=== PATIENT | male | born 1955 | race Caucasian/White ===

== ENCOUNTER 2017-04-27 18:40 | Observation (INO) | payer MEDICAID ==
[2017-04-27 18:45] VITALS: BMI 32.5
[2017-04-27] MEDS ORDERED: Sodium Chloride 0.9% 500 ML IV STA (19:01)
[2017-04-27] MEDS ORDERED: Sodium Chloride 0.9% 2,000 ML IV STA (19:03)
[2017-04-27 19:32] LABS: BASO # 0.03 K/mm3 (0.0-2.0); BASO % 0.5 % (0.0-3.0); EOS % 0.6 % (1.5-5.0); HEMOGLOBIN 14.7 gm/dL (14.0-18.0); LYMPH # 1.7 (1.2-3.4); MEAN CELL VOLUME 90.1 fL (80.0-105.0); MEAN CORPUSCULAR HEMOGLOBIN 30.9 pg (25.0-35.0); MEAN CORPUSCULAR HGB CONC 34.3 g/dl (31.0-37.0); MONO # 0.6 (0.1-0.6); MONO % 8.9 % (1.0-6.0); PLATELET COUNT 229 10^3/uL (120.0-450.0); RBC 4.76 10^6/uL (3.5-6.1); RED CELL DISTRIBUTION WIDTH 13.3 % (11.5-14.5); WHITE BLOOD COUNT 6.6 10^3/ul (4.5-11.0)
[2017-04-27 19:35] LABS: ALB/GLOB RATIO 1.2 (1.1-1.8); ALBUMIN 3.9 g/dL (3.0-4.8); ALT/SGPT 36 U/L (7-56); AST/SGOT 23 U/L (15-59); BLOOD UREA NITROGEN 12 mg/dL (7-21); GFR AFRICAN-AMERICAN > 60; GFR NON-AFRICAN AMERICAN > 60
[2017-04-27 19:39] LABS: INR 1.1 (0.93-1.08); PARTIAL THROMBOPLASTIN TIME 23.1 Seconds (23.7-30.8); PROTHROMBIN TIME 11.9 Seconds (9.9-11.8)
[2017-04-27 19:52] LABS: T4 7.6 ug/dL (5.5-11.0)
[2017-04-27 19:56] LABS: TROPONIN I < 0.01 ng/mL
[2017-04-27] MEDS ORDERED: Insulin Regular 1 UNITS/0.01 ML ML IV STA ×2 (20:44→23:08)
--- NOTE | 2017-04-27 20:56 | ED PDOC ---
Arrival/HPI - General Chief Complaint: Chest Pain Time Seen by Provider: 04/27/17 19:01 Historian: Patient - History of Present Illness Narrative History of Present Illness (Text): 04/27/17 20:57 A 61 year old male presents to the emergency department complaining of one day duration of chest pain and pressure, polyuria and polydipsia and increase thirst. Patient denies any other complaints at this time. PMD: Dr. Hightower Time/Duration: Other (one day) Symptom Onset: Sudden Symptom Course: Unchanged Activities at Onset: Rest Context: Home Past Medical History - Provider Review Nursing Documentation Reviewed: Yes - Infectious Disease Hx of Infectious Diseases: None - Tetanus Immunization Tetanus Immunization: Unknown - Cardiac Hx Hypertension: Yes - Pulmonary Hx Respiratory Disorders: Yes Hx Chronic Obstructive Pulmonary Disease (COPD): Yes - Neurological Hx Neurological Disorder: No - HEENT Hx HEENT Disorder: No - Renal Hx Renal Disorder: No - Endocrine/Metabolic Hx Endocrine Disorders: No - Hematological/Oncological Hx Blood Disorders: No - Integumentary Hx Dermatological Disorder: No - Musculoskeletal/Rheumatological Hx Musculoskeletal Disorders: No - Gastrointestinal Hx Gastrointestinal Disorders: No - Genitourinary/Gynecological Hx Genitourinary Disorders: No - Psychiatric Hx Anxiety: Yes Hx Substance Use: No - Surgical History Hx Coronary Stent: Yes Other/Comment: L shoulder - Anesthesia Hx Anesthesia: Yes Hx Anesthesia Reactions: No Hx Malignant Hyperthermia: No - Suicidal Assessment Feels Threatened In Home Enviroment: No Family/Social History - Physician Review Nursing Documentation Reviewed: Yes Family/Social History: No Known Family HX Smoking Status: Former Smoker Hx Alcohol Use: No Hx Substance Use: No Hx Substance Use Treatment: No Allergies/Home Meds Allergies/Adverse Reactions: Allergies No Known Allergies Allergy (Verified 07/03/12 13:54) Home Medications: Home Meds Medication Instructions Recorded Confirmed Aspirin [Ecotrin] 325 mg PO DAILY 07/05/12 04/27/17 Gemfibrozil 600 mg PO Q12 07/05/12 04/27/17 Digoxin [Lanoxin] 0.25 mg PO DAILY 04/27/17 04/27/17 Ergocalciferol (Vitamin D2) 50,000 iu PO QD7 04/27/17 04/27/17 [Vitamin D] Fluticasone/Salmeterol [Advair 1 puff INH DAILY 04/27/17 04/27/17 250-50 Diskus] Hydrochlorothiazide [Microzide] 12.5 mg PO DAILY 04/27/17 04/27/17 Ipratropium [Atrovent HFA] 1 puff INH BID PRN 04/27/17 04/27/17 Levothyroxine [Synthroid] 75 mcg PO DAILY 04/27/17 04/27/17 Metoprolol Tartrate [Lopressor] 25 mg PO BID 04/27/17 04/27/17 Sertraline [Zoloft] 50 mg PO DAILY 04/27/17 04/27/17 Review of Systems - Physician Review All systems were reviewed & negative as marked: Yes Physical Exam - Physical Exam Narrative Physical Exam (Text): 04/27/17 20:55- Review of Systems Constitutional: Normal. absent: Fatigue, Weight Change, Fevers Eyes: Normal ENT: Normal Respiratory: Normal absent: SOB, Cough, Sputum Cardiovascular: Chest pain and pressure absent: Palpitations, Syncope Gastrointestinal: Normal absent: Abdominal pain, Diarrhea, Nausea, Vomiting Genitourinary: polyuria, polydipsia, increase thirst absent: Dysuria, Frequency , Hematuria Musculoskeletal: Normal. absent: Arthralgias, Back Pain, Neck Pain Skin: Normal Neurological: Normal absent: Focal Weakness Endocrine: polyuria, polydipsia Hemo/Lymphatic: Normal Psychiatric: Normal - Physical exam Patient appears age appropriate, speaking full sentences without difficulty - Systems Exam Head: Present: Atraumatic, Normocephalic Pupils: Present: PERRL Extraocular Muscles: Present: EOMI Conjunctiva: Present: Normal Mouth: Present: Moist Mucous Membranes Neck: Present: Normal Range of Motion. No: MIDLINE TENDERNESS, Paraspinal Tenderness Respiratory/Chest: Present: Clear to Auscultation, Good Air Exchange. No: Respiratory Distress, Accessory Muscle Use, Tachypnic Cardiovascular: Present: tachycardic, Peripheral Pulses Present. No: Murmurs Abdomen: Present: Normal Bowel Sounds, No: Tenderness, Peritoneal Signs, Rebound, Guarding, Distention Back: Present: Normal Inspection. No: Midline Tenderness, Paraspinal Tenderness Upper Extremity: Present: Normal Inspection. No: Cyanosis, Edema Lower Extremity: Present: Normal Inspection. No: Edema Neurological: Present: GCS=15, Speech Normal, cranial nerves II through XII fully intact with no cerebellar abnormality, neuro-sensory fully intact. No focal neurological deficits. Skin: Present: Warm, Dry, Normal Color. No: Rashes Lymphatic: Present: OX3, NI, NC Psychiatric: Present: Alert, Oriented x 3, Normal Insight, Normal Concentration Vital Signs Reviewed: Yes Vital Signs Temp Pulse Resp BP Pulse Ox 04/27/17 18:40 99.1 F 109 H 16 114/98 H 99 Temperature: Afebrile Blood Pressure: Hypertensive Pulse: Tachycardic Respiratory Rate: Normal Appearance: Positive for: Well-Appearing, Non-Toxic, Comfortable Pain Distress: None Mental Status: Positive for: Alert and Oriented X 3 Finger Stick Blood Glucose: 500 Medical Decision Making ED Course and Treatment: 04/27/17 20:52 Impression: A 61 year old male with chest pain and pressure, polyuria and polydipsia. No acute findings on physical exam. Differential Diagnosis included but are not limited to: ACS vs. DKA vs. hyperglycemia Plan: -- EKG -- chest xray -- labs -- Urinalysis -- Aspirin, Nitroglycerin, IV fluids -- Reassess and disposition Prior Visits: Notes and results from previous visits were reviewed. Patient last reported to the emergency department on 12/04/14 for evaluation of diffuse abdominal pain, nausea, vomiting and diarrhea. Progress Notes: EKG: Ordered, reviewed, and independently interpreted the EKG. Rate : 98 BPM Rhythm : NSR Interpretation : No ST segment elevations, PVCs, poor R wave progression 04/27/17 21:[address] Shannon, who accepted admission for hyperglycemia to hospital service. pt aware of and agrees with plan Dr. Hightower, [place], on vacation, whose patients to be admitted to hosp service. Chest xray interpreted by ED physician shows no pneumothorax, no cardiomegaly, no infiltrates - Lab Interpretations Lab Results: 04/27/17 18:50 04/27/17 18:50 Lab Results 04/27/17 20:52: POC Glucose (mg/dL) > 500 H* 04/27/17 20:21: Digoxin 0.6 L 04/27/17 19:03: POC Glucose (mg/dL) > 500 H* 04/27/17 18:50: Thyroxine (T4) 7.6, TSH 3rd Generation 3.76 04/27/17 18:50: Sodium 121 L, Potassium 3.9, Chloride 83 L, Carbon Dioxide 22, Anion Gap 20, BUN 12, Creatinine 0.9, Est GFR ( Amer) > 60, Est GFR (Non- Af Amer) > 60, Random Glucose 758 H* D, Calcium 9.0, Total Bilirubin 1.7 H, AST 23, ALT 36, Alkaline Phosphatase 142 H, Lactate Dehydrogenase 432, Total Creatine Kinase 66, Troponin I < 0.01 D, Total Protein 7.1, Albumin 3.9, Globulin 3.2, Albumin/Globulin Ratio 1.2 04/27/17 18:50: PT 11.9 H, INR 1.10 H, APTT 23.1 L 04/27/17 18:50: WBC 6.6, RBC 4.76, Hgb 14.7, Hct 42.9, MCV 90.1, MCH 30.9, MCHC 34.3, RDW 13.3, Plt Count 229, Gran % 65.0, Lymph % (Auto) 25.0, [place] % (Auto) 8.9 H, Eos % (Auto) 0.6 L, Baso % (Auto) 0.5, Gran # 4.30, Lymph # 1.7, [place] # 0.6, Eos # 0.0, Baso # 0.03 I have reviewed the lab results: Yes - RAD Interpretation Radiology Orders: 04/27/17 19:01 CHEST PORTABLE [RAD] Stat - EKG Interpretation Interpreted by ED Physician: Yes Type: 12 lead EKG - Medication Orders Current Medication Orders: Discontinued Medications Aspirin (Aspirin Chewable) 324 mg PO STAT STA Stop: 04/27/17 19:02 Last Admin: 04/27/17 19:15 Dose: 324 mg Sodium Chloride (Sodium Chloride 0.9%) 500 mls @ 1,000 mls/hr IV .Q30M STA Stop: 04/27/17 19:30 Last Admin: 04/27/17 19:15 Dose: 1,000 mls/hr Sodium Chloride (Sodium Chloride 0.9%) 2,000 mls @ 1,000 mls/hr IV .Q2H STA Stop: 04/27/17 21:02 Last Admin: 04/27/17 20:36 Dose: 1,000 mls/hr Insulin Human Regular (Humulin R) 10 units IV STAT STA Stop: 04/27/17 20:45 Last Admin: 04/27/17 20:58 Dose: 10 units Nitroglycerin (Nitrostat Sl Tab) 0.3 mg SL STAT STA Stop: 04/27/17 19:02 Last Admin: 04/27/17 19:15 Dose: 0.3 mg - Scribe Statement The provider has reviewed the documentation as recorded by the Lobito Edouard Provider Scribe Attestation: All medical record entries made by the Vidaibe were at my direction and personally dictated by me. I have reviewed the chart and agree that the record accurately reflects my personal performance of the history, physical exam, medical decision making, and the department course for this patient. I have also personally directed, reviewed, and agree with the discharge instructions and disposition. Disposition/Present on Arrival - Present on Arrival Any Indicators Present on Arrival: No History of DVT/PE: No History of Uncontrolled Diabetes: No Urinary Catheter: No History of Decub. Ulcer: No History Surgical Site Infection Following: None - Disposition Have Diagnosis and Disposition been Completed?: Yes Diagnosis: Chest pain, Hyperglycemia Disposition: HOSPITALIZED Disposition Time: 21:09 Patient Plan: Admission Condition: FAIR Discharge Instructions (ExitCare): Chest Pain (ED) Referrals: Anjum Hightower MD [Primary Care Provider] - Follow up with primary
[2017-04-27] MEDS ORDERED: Sodium Chloride 0.9% 1,000 ML IV SCH (22:45)
--- NOTE | 2017-04-27 22:48 | CP.PCM.HP ---
<DANIELLE PRATHERON - Last Filed: 04/28/17 05:14> History of Present Illness - History of Present Illness History of Present Illness: Mr. Oden is a 61 year old male with a past medical history of CAD (Left heart catheterization and [facility] to diagonal and PDA s/p STEMI), Chronic systolic HF, hypothyroidism, htn, and depression who presented to the ED today with complaints of chest pain, abdominal pain, polyuria and polydipsia. Patient denies any radiation of the chest pain, denies provoking and alleviating factors as well. Patient states that he hasn't eaten and is without an appetite. He admits to taking an herbal supplement for his blood sugars, but cannot remember the name at the moment. Present on Admission - Present on Admission Any Indicators Present on Admission: No History of DVT/PE: No History of Uncontrolled Diabetes: Yes Urinary Catheter: No Decubitus Ulcer Present: No Review of Systems - Review of Systems Systems not reviewed;Unavailable: Acuity of Condition, Unstable Vital Signs, Respiratory Distress, Dementia, Altered Mental Status, Intoxicated, Uncooperative, Psychotic, Intubated, Language Barrier, Other All systems: reviewed and no additional remarkable complaints except (abdominal pain, chest pain, polyuria, polydipsia) Past Patient History - Infectious Disease Hx of Infectious Diseases: None - Tetanus Immunizations Tetanus Immunization: Unknown - Past Social History Smoking Status: Former Smoker (3-4 packs a day until about 2 years ago as per patient) Chewing Tobacco Use: No Cigar Use: No Alcohol: Other (heavy drinker until two years ago as per patient) Drugs: Denies - CARDIAC Hx Cardiac Disorders: Yes (CAD ) Hx Angina: Yes Hx Atrial Fibrillation: No Hx Cardia Arrhythmia: No Hx Circulatory Problems: No Hx Congestive Heart Failure: Yes Hx Heart Attack: Yes Hx Heart Murmur: No Hx Heart Transplant: No Hx Hypercholesterolemia: Yes Hx Hypertension: Yes Hx Hypotension: No Hx Internal Defibrillator: No Hx Mitral Valve Prolapse: No Hx Pacemaker: No Hx Peripheral Edema: No Hx Peripheral Vascular Disease: No - PULMONARY Hx Respiratory Disorders: Yes Hx Asthma: No Hx Bronchitis: No Hx Chronic Obstructive Pulmonary Disease (COPD): Yes Hx Emphysema: No Hx Lung Cancer: No Hx Pneumonia: No Hx Pulmonary Edema: No Hx Pulmonary Embolism: No Hx Respiratory Aspiration: No Hx Respiratory Tract Infection: No Hx Sleep Apnea: No Hx Tuberculosis: No - NEUROLOGICAL Hx Neurological Disorder: No Hx Alzheimer's Disease: No HX Cerebrovascular Accident: No Hx Dementia: No Hx Dizziness: No Hx Meningitis: No Hx Migraine: No Hx Multiple Sclerosis: No Hx Paralysis: No Hx Parkinson's Disease: No Hx Seizures: No Hx Syncope: No Hx Transient Ischemic Attacks (TIA): No Hx Vertigo: No - HEENT Hx HEENT Problems: No Hx Blind: No Hx Cataracts: No Hx Deafness: No Hx Difficulty Chewing: No Hx Epistaxis: No Hx Glaucoma: No Hx Macular Degeneration: No Hx Sinusitis: No - RENAL Hx Chronic Kidney Disease: No Hx Dialysis: No Hx Kidney Stones: No Hx Neurogenic Bladder: No Hx Pyelonephritis: No Hx Renal (Kidney) Cancer: No Hx Renal Failure: No - ENDOCRINE/METABOLIC Hx Endocrine Disorders: No Hx Adrenal Cancer: No Hx Diabetes Insipidus: No Hx Diabetes Mellitus Type 1: No Hx Diabetes Mellitus Type 2: No Hx Hyperthyroidism: No Hx Hypothyroidism: No Hx Systemic Lupus Erythematosus: No - HEMATOLOGICAL/ONCOLOGICAL Hx Blood Disorders: No Hx AIDS: No Hx Anemia: No Hx Blood Transfusions: No Hx Blood Transfusion Reaction: No Hx Bruising: No Hx Cancer: No Hx Chemotherapy: No Hx Cirrhosis: No Hx Gum Bleeding: No Hx Hemophilia: No Hx Hepatitis A: No Hx Hepatitis B: No Hx Hepatitis C: No Hx Human Immunodeficiency Virus (HIV): No Hx Leukemia: No Hx Lymphoma: No Hx Metastesis: No Hx Shingles: No Hx Sickle Cell Trait: No Hx Sickle Cell Disease: No Hx Unexplained Bleeding: No Hx von Willebrand's Disease: No - INTEGUMENTARY Hx Dermatological Problems: No Hx Basil Cell: No Hx Gross: No Hx Cellulitis: No Hx Eczema: No Hx Melanoma: No Hx Psoriasis: No Hx Squamous Cell: No - MUSCULOSKELETAL/RHEUMATOLOGICAL Hx Musculoskeletal Disorders: No Hx Arthritis: No Hx Back Pain: No Hx Degenerative Joint Disease: No Hx Falls: No Hx Fractures: No Hx Gout: No Hx Herniated Disk: No Hx Myasthenia Gravis: No Hx Osteoarthritis: No Hx Osteomyelitis: No Hx Osteoporosis: No Hx Rhabdomyolysis: No Hx Rheumatoid Arthritis: No Hx Spinal Stenosis: No Hx Unsteady Gait: No - GASTROINTESTINAL Hx Gastrointestinal Disorders: No Hx Bowel Surgery: No Hx Clostridium Difficile: No Hx Colitis: No Hx Colostomy: No Hx Constipation: No Hx Crohn's Disease: No Hx Diarrhea: No Hx Diverticulitis: No Hx Esophageal Varices: No Hx Fatty Liver Disease: No Hx Gall Bladder Disease: No Hx Gastritis: No Hx Gastroesophageal Reflux: No Hx Hemorrhoids: No Hx Ileostomy: No Hx Irritable Bowel: No Hx Liver Failure: No Hx Nausea: No Hx Pancreatitis: No HX Swallowing Problems: No Hx Ulcer: No Hx Vomiting: No - GENITOURINARY/GYNECOLOGICAL Hx Genitourinary Disorders: No Hx Bladder Cancer: No Hx Bladder Stone: No Hx Hematuria: No Hx Incontinence: No Hx Prostate Cancer: No Hx Prostate Problems: No Hx Reproductive Disorders: No Hx Sexually Transmitted Disorders: No Hx Urinary Tract Infection: No - PSYCHIATRIC Hx Psychophysiologic Disorder: No Hx Anxiety: No Hx Bipolar Disorder: No Hx Depression: Yes Hx Emotional Abuse: No Hx Hallucinations: No Hx Panic Symptoms: No Hx Paranoia: No Hx Post Traumatic Stress Disorder: No Hx Psychosis: No Hx Physical Abuse: No Hx Schizophrenia: No Hx Sexual Abuse: No Hx Substance Use: No - SURGICAL HISTORY Hx Surgeries: No Hx Abdominal Aortic Aneurysm Repair: No Hx Amputation: No Hx Angiogram: No Hx Angioplasty: No Hx Appendectomy: No Hx Arteriovenous Shunt: No Hx Arthroscopy: No Hx Bile Duct Stent: No Hx Breast Biopsy: No Hx Cataract Extraction: No Hx Cardiac Catheterization: Yes Hx Carotid Endarterectomy: No Hx Section: No Hx Cholecystectomy: No Hx Coronary Artery Bypass Graft: Yes Hx Coronary Stent: Yes Hx Dilation and Curettage: No Hx Eye Surgery: No Hx Femoral-Popliteal Bypass Graft: No Hx Gastric Bypass Surgery: No Hx Herniorrhaphy: No Hx Hysterectomy: No Hx Joint Replacement: No Hx Kidney Transplant: No Hx Liver Transplant: No Hx Mastectomy: No Hx Musculoskeletal Surgery: No Hx Open Heart Surgery: No Hx Open Reduction Internal Fixation: No Hx Orthopedic Surgery: No Hx Parathyroidectomy: No Hx Penile Implant: No Hx Pulmonary Surgery: No Hx Splenectomy: No Hx Thyroidectomy: No Hx Tonsillectomy: No Hx Tubal Ligation: No Hx Valve Replacement: No Hx Vascular Surgery: No Hx Vascular Access Device: No Other/Comment: L shoulder Meds Allergies/Adverse Reactions: Allergies Allergy/AdvReac Type Severity Reaction Status Date / Time No Known Allergies Allergy Verified 07/03/12 13:54 Physical Exam - Constitutional Appears: No Acute Distress - Head Exam Head Exam: ATRAUMATIC, NORMAL INSPECTION, NORMOCEPHALIC - Eye Exam Eye Exam: Normal appearance - ENT Exam ENT Exam: Mucous Membranes Dry - Neck Exam Neck exam: Positive for: Normal Inspection - Respiratory Exam Respiratory Exam: Clear to Auscultation Bilateral, NORMAL BREATHING PATTERN - Cardiovascular Exam Cardiovascular Exam: REGULAR RHYTHM - GI/Abdominal Exam GI & Abdominal Exam: Normal Bowel Sounds, Soft - Extremities Exam Extremities exam: Positive for: normal inspection - Back Exam Back exam: NORMAL INSPECTION, vertebral tenderness - Neurological Exam Neurological exam: Alert, Oriented x3 - Psychiatric Exam Psychiatric exam: Normal Affect, Normal Mood - Skin Skin Exam: Dry, Normal Color Results - Vital Signs Recent Vital Signs: Last Vital Signs Temp 99.1 F 04/27/17 18:40 Pulse 109 H 04/27/17 18:40 Resp 16 04/27/17 18:40 BP 114/98 H 04/27/17 18:40 Pulse Ox 99 04/27/17 18:40 - Labs Result Diagrams: 04/27/17 18:50 04/28/17 00:30 Labs: Laboratory Results - last 24 hr 04/27/17 22:05 POC Glucose (mg/dL) 434 H* Assessment & Plan (1) Chest pain, rule out acute myocardial infarction Assessment and Plan: Troponin x 3 q 6 hours. Will continue with medications for CAD: Lopid, lipitor, plavix. Will add sublingual Nitroglycerin 0.4 mg PO PRN Status: Acute (2) Hyperglycemic hyperosmolar nonketotic coma Assessment and Plan: Patient has received 2.5 L of NS, will continue with IV fluids. Will give 100 cc fluids per hour for 1 bag until the morning time taking into consideration patient's chronic systolic CHF. Will order BMP to check if the anion gap is still present s/p fluids. Will continue to monitor blood sugar levels q 4 hours as well as have a finer stick performed q 4 hours. Will check HgA1c in morning. Diabetic education recommended so patient can have a better understanding of the impact his diet has on his overall health. Status: Acute (3) Systolic CHF, chronic Assessment and Plan: Will monitor I/O and daily weights. Continue with Zestril for afterload reduction. Will also continue with Digoxin. Status: Chronic (4) On famotidine prophylaxis Assessment and Plan: Patient is receiving pepcid 40 mg PO HS as ulcer prophylaxis. Status: Acute (5) DVT prophylaxis Assessment and Plan: Patient will receive heparin 5000 IU q 8 hours for DVT prophylaxis. Status: Acute (6) Hypothyroidism Assessment and Plan: Will continue with home medication of synthroid 75 mcg PO. Status: Acute (7) Hypertension Assessment and Plan: BP stable, will continue with home medication regimen of metoprolol, zestril, and HCTZ. Status: Acute <Scar Shannon Q - Last Filed: 04/28/17 06:25> Results - Vital Signs Recent Vital Signs: Last Vital Signs Temp 98.4 F 04/28/17 06:00 Pulse 85 04/28/17 06:00 Resp 19 04/28/17 06:00 BP 98/52 L 04/28/17 06:00 Pulse Ox 99 04/28/17 06:00 - Labs Result Diagrams: 04/27/17 18:50 04/28/17 00:30 Labs: Laboratory Results - last 24 hr 04/27/17 04/27/17 04/28/17 22:05 23:35 00:30 Sodium 131 L Potassium 3.4 L Chloride 93 L Carbon Dioxide 28 Anion Gap 13 BUN 10 Creatinine 0.8 Est GFR ( Amer) > 60 Est GFR (Non-Af Amer) > 60 POC Glucose (mg/dL) 434 H* Random Glucose 343 H* D Calcium 8.5 Lactate Dehydrogenase 296 L Total Creatine Kinase 64 Troponin I < 0.01 Urine Color Yellow Urine Appearance Sl cloudy Urine pH 6.0 Ur Specific [place] 1.010 Urine Protein Negative Urine Glucose (UA) 500 H Urine Ketones 40 H Urine Blood Small H Urine Nitrate Negative Urine Bilirubin Negative Urine Urobilinogen 0.2 Ur Leukocyte Esterase Negative Urine RBC 2 - 5 Urine WBC 0 - 2 Ur Epithelial Cells 0 - 2 Attending/Attestation - Attestation I have personally seen and examined this patient.: Yes I have fully participated in the care of the patient.: Yes I have reviewed all pertinent clinical information: Yes Notes (Text): 04/28/17 06:23 I agree with the above note by the resident with the addition/exception of the following: PMHx: Htn CAD s/p CABG DM type 2 Hypothyroid Depression ?COPD dyslipidemia Systolic CHF (Echo on 12/05/14 shows an EF of 30%) Fam Hx: reviewed and noncontributory Patient being admitted for HONK + chest pain rule out ACS
[2017-04-27] MEDS ORDERED: Pneumococcal 23-Valent Vaccine IM ONE (23:19)
[2017-04-27 23:54] LABS: URINE BILIRUBIN NEGATIVE (NEGATIVE); URINE BLOOD SMALL (NEGATIVE); URINE GLUCOSE (UA) 500 mg/dL (NEGATIVE); URINE LEUKOCYTE ESTERASE NEGATIVE Leu/uL (NEGATIVE); URINE NITRATE NEGATIVE (NEGATIVE); URINE PROTEIN NEGATIVE mg/dL (<30 mg/dL); URINE UROBILINOGEN 0.2 E.U./dL (<1 E.U./dL)
[2017-04-27] MEDS ORDERED: Insulin Detemir 100 units/ml Vial (Levemir) SC ONE (23:54)
[2017-04-27 23:55] LABS: URINE APPEARANCE SL CLOUDY (CLEAR); URINE COLOR YELLOW (YELLOW)
[2017-04-27 23:58] LABS: URINE EPITHELIAL CELLS 0 - 2 /hpf (0-5); URINE WBC 0 - 2 /hpf (0-6)
[2017-04-28] MEDS: Insulin Reg-MEDIUM-Coverage SC SCH ×3 (00:26→08:33)
[2017-04-28 00:54] LABS: BLOOD UREA NITROGEN 10 mg/dL (7-21); CALCIUM 8.5 mg/dL (8.4-10.5); GFR AFRICAN-AMERICAN > 60; GFR NON-AFRICAN AMERICAN > 60
[2017-04-28 01:12] LABS: TROPONIN I < 0.01 ng/mL
[2017-04-28] MEDS ORDERED: Insulin Regular 1 UNITS/0.01 ML ML SC STA (04:12)
[2017-04-28] MEDS: Levothyroxine 75 MCG TAB PO SCH (05:34)
[2017-04-28 08:30] LABS: HEMOGLOBIN 13.1 gm/dL (14.0-18.0); MEAN CELL VOLUME 88.1 fL (80.0-105.0); MEAN CORPUSCULAR HEMOGLOBIN 30.5 pg (25.0-35.0); MEAN CORPUSCULAR HGB CONC 34.7 g/dl (31.0-37.0); MEAN PLATELET VOLUME 14.3 fl (7.0-11.0); RBC 4.29 10^6/uL (3.5-6.1); RED CELL DISTRIBUTION WIDTH 13.1 % (11.5-14.5); WHITE BLOOD COUNT 5.2 10^3/ul (4.5-11.0)
[2017-04-28 08:41] LABS: ALB/GLOB RATIO 1.1 (1.1-1.8); ALBUMIN 3.1 g/dL (3.0-4.8); ALT/SGPT 40 U/L (7-56); AST/SGOT 23 U/L (15-59); BLOOD UREA NITROGEN 10 mg/dL (7-21); CALCIUM 8.4 mg/dL (8.4-10.5); GFR AFRICAN-AMERICAN > 60; GFR NON-AFRICAN AMERICAN > 60; MAGNESIUM 1.8 mg/dL (1.7-2.2)
--- NOTE | 2017-04-28 08:48 | CARD ---
APPROVED REPORT EKG Measurement Heart [id number] <Conclusion> NSR with SVPCs and PVCs Left anterior fascicular block Inferior infarct, age undetermined Cannot rule out Anterior infarct, age undetermined Abnormal ECG
[2017-04-28 08:54] LABS: TROPONIN I 0.01 ng/mL
[2017-04-28] MEDS ORDERED: Potassium Phosphate 15 MMOLE in Sodium Chloride 0.9% 250 ML IVPB ONE (09:46)
[2017-04-28] MEDS ORDERED: Insulin Detemir 100 units/ml Vial (Levemir) SC SCH ×2 (10:00→22:00)
[2017-04-28 10:28] LABS: HDL CHOLESTEROL 24 mg/dL (29-60)
--- NOTE | 2017-04-28 10:30 | RAD ---
HISTORY: cough COMPARISON: 09/03/2015 FINDINGS: LUNGS: No active pulmonary disease. PLEURA: No significant pleural effusion identified, no pneumothorax apparent. CARDIOVASCULAR: Normal heart size. Sternotomy wires. No congestive change. OSSEOUS STRUCTURES: No significant abnormalities. VISUALIZED UPPER ABDOMEN: Normal. OTHER FINDINGS: None. IMPRESSION: No active disease.
[2017-04-28 10:38] LABS: LDL CHOLESTEROL 36 mg/dL (0-129)
--- NOTE | 2017-04-28 11:47 | CP.PCM.CON ---
History of Present Illness - History of Present Illness History of Present Illness: Reason for consult; CAD S/p STEMI...06/24/2014, admitted with uncontrolled DM 61 year old male with PMhx of CAD, HTN, CMP, ( [facility]..EF-35% 10/21/2016), S/p Code STEMI... 06/24/2016 S/p PTCA D2 and R PDA with Deborah admitted with Non ketotic Hyperosmolar state and un controlled DM, NO chest pain or ACS. PMHx. CAD as above,T2DM. HTN, obesity. hyperlipidemia Past Patient History - Infectious Disease Hx of Infectious Diseases: None - Tetanus Immunizations Tetanus Immunization: Unknown - Past Social History Smoking Status: Former Smoker (3-4 packs a day until about 2 years ago as per patient) Chewing Tobacco Use: No Cigar Use: No Alcohol: Other (heavy drinker until two years ago as per patient) Drugs: Denies - CARDIAC Hx Cardiac Disorders: Yes (CAD ) Hx Angina: Yes Hx Atrial Fibrillation: No Hx Cardia Arrhythmia: No Hx Circulatory Problems: No Hx Congestive Heart Failure: Yes Hx Heart Attack: Yes Hx Heart Murmur: No Hx Heart Transplant: No Hx Hypercholesterolemia: Yes Hx Hypertension: Yes Hx Hypotension: No Hx Internal Defibrillator: No Hx Mitral Valve Prolapse: No Hx Pacemaker: No Hx Peripheral Edema: No Hx Peripheral Vascular Disease: No - PULMONARY Hx Respiratory Disorders: Yes Hx Asthma: No Hx Bronchitis: No Hx Chronic Obstructive Pulmonary Disease (COPD): Yes Hx Emphysema: No Hx Lung Cancer: No Hx Pneumonia: No Hx Pulmonary Edema: No Hx Pulmonary Embolism: No Hx Respiratory Aspiration: No Hx Respiratory Tract Infection: No Hx Sleep Apnea: No Hx Tuberculosis: No - NEUROLOGICAL Hx Neurological Disorder: No Hx Alzheimer's Disease: No HX Cerebrovascular Accident: No Hx Dementia: No Hx Dizziness: No Hx Meningitis: No Hx Migraine: No Hx Multiple Sclerosis: No Hx Paralysis: No Hx Parkinson's Disease: No Hx Seizures: No Hx Syncope: No Hx Transient Ischemic Attacks (TIA): No Hx Vertigo: No - HEENT Hx HEENT Problems: No Hx Blind: No Hx Cataracts: No Hx Deafness: No Hx Difficulty Chewing: No Hx Epistaxis: No Hx Glaucoma: No Hx Macular Degeneration: No Hx Sinusitis: No - RENAL Hx Chronic Kidney Disease: No Hx Dialysis: No Hx Kidney Stones: No Hx Neurogenic Bladder: No Hx Pyelonephritis: No Hx Renal (Kidney) Cancer: No Hx Renal Failure: No - ENDOCRINE/METABOLIC Hx Endocrine Disorders: No Hx Adrenal Cancer: No Hx Diabetes Insipidus: No Hx Diabetes Mellitus Type 1: No Hx Diabetes Mellitus Type 2: No Hx Hyperthyroidism: No Hx Hypothyroidism: No Hx Systemic Lupus Erythematosus: No - HEMATOLOGICAL/ONCOLOGICAL Hx Blood Disorders: No Hx AIDS: No Hx Anemia: No Hx Blood Transfusions: No Hx Blood Transfusion Reaction: No Hx Bruising: No Hx Cancer: No Hx Chemotherapy: No Hx Cirrhosis: No Hx Gum Bleeding: No Hx Hemophilia: No Hx Hepatitis A: No Hx Hepatitis B: No Hx Hepatitis C: No Hx Human Immunodeficiency Virus (HIV): No Hx Leukemia: No Hx Metastesis: No Hx Shingles: No Hx Sickle Cell Disease: No Hx Unexplained Bleeding: No Hx von Willebrand's Disease: No - INTEGUMENTARY Hx Dermatological Problems: No Hx Basil Cell: No Hx Gross: No Hx Cellulitis: No Hx Eczema: No Hx Melanoma: No Hx Psoriasis: No Hx Squamous Cell: No - MUSCULOSKELETAL/RHEUMATOLOGICAL Hx Musculoskeletal Disorders: No Hx Arthritis: No Hx Back Pain: No Hx Degenerative Joint Disease: No Hx Falls: No Hx Fractures: No Hx Gout: No Hx Herniated Disk: No Hx Myasthenia Gravis: No Hx Osteoarthritis: No Hx Osteomyelitis: No Hx Osteoporosis: No Hx Rhabdomyolysis: No Hx Rheumatoid Arthritis: No Hx Spinal Stenosis: No Hx Unsteady Gait: No - GASTROINTESTINAL Hx Gastrointestinal Disorders: No Hx Bowel Surgery: No Hx Clostridium Difficile: No Hx Colitis: No Hx Colostomy: No Hx Constipation: No Hx Crohn's Disease: No Hx Diarrhea: No Hx Diverticulitis: No Hx Esophageal Varices: No Hx Fatty Liver Disease: No Hx Gall Bladder Disease: No Hx Gastritis: No Hx Gastroesophageal Reflux: No Hx Hemorrhoids: No Hx Ileostomy: No Hx Irritable Bowel: No Hx Liver Failure: No Hx Nausea: No Hx Pancreatitis: No HX Swallowing Problems: No Hx Ulcer: No Hx Vomiting: No - GENITOURINARY/GYNECOLOGICAL Hx Genitourinary Disorders: No Hx Bladder Cancer: No Hx Bladder Stone: No Hx Hematuria: No Hx Incontinence: No Hx Prostate Cancer: No Hx Prostate Problems: No Hx Reproductive Disorders: No Hx Sexually Transmitted Disorders: No Hx Urinary Tract Infection: No - PSYCHIATRIC Hx Psychophysiologic Disorder: No Hx Anxiety: No Hx Bipolar Disorder: No Hx Depression: Yes Hx Emotional Abuse: No Hx Hallucinations: No Hx Panic Symptoms: No Hx Paranoia: No Hx Post Traumatic Stress Disorder: No Hx Psychosis: No Hx Physical Abuse: No Hx Schizophrenia: No Hx Sexual Abuse: No Hx Substance Use: No - SURGICAL HISTORY Hx Surgeries: No Hx Abdominal Aortic Aneurysm Repair: No Hx Amputation: No Hx Angiogram: No Hx Angioplasty: No Hx Appendectomy: No Hx Arteriovenous Shunt: No Hx Arthroscopy: No Hx Bile Duct Stent: No Hx Breast Biopsy: No Hx Cataract Extraction: No Hx Cardiac Catheterization: Yes Hx Carotid Endarterectomy: No Hx Section: No Hx Cholecystectomy: No Hx Coronary Artery Bypass Graft: Yes Hx Coronary Stent: Yes Hx Dilation and Curettage: No Hx Eye Surgery: No Hx Femoral-Popliteal Bypass Graft: No Hx Gastric Bypass Surgery: No Hx Herniorrhaphy: No Hx Hysterectomy: No Hx Joint Replacement: No Hx Kidney Transplant: No Hx Liver Transplant: No Hx Mastectomy: No Hx Musculoskeletal Surgery: No Hx Open Heart Surgery: No Hx Open Reduction Internal Fixation: No Hx Orthopedic Surgery: No Hx Parathyroidectomy: No Hx Penile Implant: No Hx Pulmonary Surgery: No Hx Splenectomy: No Hx Thyroidectomy: No Hx Tonsillectomy: No Hx Tubal Ligation: No Hx Valve Replacement: No Hx Vascular Surgery: No Hx Vascular Access Device: No Other/Comment: L shoulder - ANESTHESIA Hx Anesthesia: Yes Hx Anesthesia Reactions: No Hx Malignant Hyperthermia: No Meds Allergies/Adverse Reactions: Allergies Allergy/AdvReac Type Severity Reaction Status Date / Time No Known Allergies Allergy Verified 07/03/12 13:54 - Medications Medications: Current Medications Atorvastatin Calcium (Lipitor) 80 mg PO HS [facility] Clopidogrel Bisulfate (Plavix) 75 mg PO DAILY [facility] Last Admin: 04/28/17 09:59 Dose: 75 mg Digoxin (Lanoxin) 0.25 mg PO 1400 [facility] Famotidine (Pepcid) 40 mg PO HS [facility] Gemfibrozil (Lopid) 600 mg PO Q12 [facility] Last Admin: 04/28/17 10:00 Dose: 600 mg Heparin Sodium (Porcine) (Heparin) 5,000 units SC Q8 [facility] PRN Reason: Protocol Last Admin: 04/28/17 05:34 Dose: 5,000 units Hydrochlorothiazide (Microzide) 12.5 mg PO DAILY [facility] Last Admin: 04/28/17 10:02 Dose: Not Given Potassium Phosphate 15 mmole/ (Sodium Chloride) 255 mls @ 42.5 mls/hr IVPB ONCE ONE Stop: 04/28/17 15:45 Insulin Detemir (Levemir) 14 unit SC HS [facility] Insulin Human Lispro (Humalog Low) 0 units SC ACHS [facility] PRN Reason: Protocol Insulin Human Regular (Humulin R Med) 0 units SC Q4H [facility] PRN Reason: Protocol Last Admin: 04/28/17 08:33 Dose: 8 units Levothyroxine Sodium (Synthroid) 75 mcg PO 0600 [facility] Last Admin: 04/28/17 05:34 Dose: 75 mcg Lisinopril (Zestril) 10 mg PO DAILY [facility] Last Admin: 04/28/17 10:02 Dose: Not Given Metoprolol Tartrate (Lopressor) 25 mg PO BID [facility] Last Admin: 04/28/17 10:00 Dose: Not Given Results - Vital Signs Recent Vital Signs: Last Vital Signs Temp 98.4 F 04/28/17 06:00 Pulse 72 04/28/17 10:00 Resp 19 04/28/17 06:00 BP 98/62 L 04/28/17 10:02 Pulse Ox 99 04/28/17 06:00 - Labs Result Diagrams: 04/28/17 08:23 04/28/17 08:23 Labs: Laboratory Results - last 24 hr 04/27/17 04/27/17 04/28/17 22:05 23:35 00:30 WBC RBC Hgb Hct MCV MCH MCHC RDW Plt Count MPV Sodium 131 L Potassium 3.4 L Chloride 93 L Carbon Dioxide 28 Anion Gap 13 BUN 10 Creatinine 0.8 Est GFR ( Amer) > 60 Est GFR (Non-Af Amer) > 60 POC Glucose (mg/dL) 434 H* Random Glucose 343 H* D Calcium 8.5 Phosphorus Magnesium Total Bilirubin AST ALT Alkaline Phosphatase Lactate Dehydrogenase 296 L Total Creatine Kinase 64 Troponin I < 0.01 Total Protein Albumin Globulin Albumin/Globulin Ratio Triglycerides Cholesterol LDL Cholesterol Direct HDL Cholesterol Urine Color Yellow Urine Appearance Sl cloudy Urine pH 6.0 Ur Specific [place] 1.010 Urine Protein Negative Urine Glucose (UA) 500 H Urine Ketones 40 H Urine Blood Small H Urine Nitrate Negative Urine Bilirubin Negative Urine Urobilinogen 0.2 Ur Leukocyte Esterase Negative Urine RBC 2 - 5 Urine WBC 0 - 2 Ur Epithelial Cells 0 - 2 04/28/17 04/28/17 04/28/17 08:23 08:23 08:23 WBC 5.2 D RBC 4.29 Hgb 13.1 L Hct 37.8 L MCV 88.1 MCH 30.5 MCHC 34.7 RDW 13.1 Plt Count 144 MPV 14.3 H Sodium 134 Potassium 3.8 Chloride 99 Carbon Dioxide 28 Anion Gap 11 BUN 10 Creatinine 0.7 Est GFR ( Amer) > 60 Est GFR (Non-Af Amer) > 60 POC Glucose (mg/dL) Random Glucose 263 H Calcium 8.4 Phosphorus 2.2 L Magnesium 1.8 Total Bilirubin 0.8 AST 23 ALT 40 Alkaline Phosphatase 107 Lactate Dehydrogenase 361 Total Creatine Kinase 58 Troponin I 0.01 Total Protein 5.9 Albumin 3.1 Globulin 2.8 Albumin/Globulin Ratio 1.1 Triglycerides Cholesterol LDL Cholesterol Direct HDL Cholesterol Urine Color Urine Appearance Urine pH Ur Specific [place] Urine Protein Urine Glucose (UA) Urine Ketones Urine Blood Urine Nitrate Urine Bilirubin Urine Urobilinogen Ur Leukocyte Esterase Urine RBC Urine WBC Ur Epithelial Cells 04/28/17 10:12 WBC RBC Hgb Hct MCV MCH MCHC RDW Plt Count MPV Sodium Potassium Chloride Carbon Dioxide Anion Gap BUN Creatinine Est GFR ( Amer) Est GFR (Non-Af Amer) POC Glucose (mg/dL) Random Glucose Calcium Phosphorus Magnesium Total Bilirubin AST ALT Alkaline Phosphatase Lactate Dehydrogenase Total Creatine Kinase Troponin I Total Protein Albumin Globulin Albumin/Globulin Ratio Triglycerides 765 H Cholesterol 154 LDL Cholesterol Direct 36 HDL Cholesterol 24 L Urine Color Urine Appearance Urine pH Ur Specific [place] Urine Protein Urine Glucose (UA) Urine Ketones Urine Blood Urine Nitrate Urine Bilirubin Urine Urobilinogen Ur Leukocyte Esterase Urine RBC Urine WBC Ur Epithelial Cells Assessment & Plan - Assessment and Plan (Free Text) Assessment: uncontrolled DM Hyper osmolar non ketotic Uncontrolled DM HTN Hyperlipidemia obesity CAD .. Code STEMI . S/p PTCA D2 and RPDA..2013 CMP.. [facility]..EF-35%.. 10/21/2016 No evidence of ACS/ NSTEMI No c/o Chest pain Plan: aggressive medical treatment for DM, HTN, obesity, hyperlidemia Upon Dc will f/u CV status stableno further Cardiac w/u now.
[2017-04-28] MEDS: Potassium Chloride 20 mEq/15 ml LIQ UD PO SCH (13:17)
[2017-04-28 13:31] VITALS: PULSE 78
[2017-04-28] MEDS ORDERED: Digoxin 250 mcg (0.25 mg) Tab PO SCH (14:00)
[2017-04-28] MEDS ORDERED: Insulin Lispro 1 UNITS/0.01 ML SC SCH (16:30)
--- NOTE | 2017-04-28 16:46 | CP.PCM.PN ---
<Josi Fontenot - Last Filed: 04/28/17 16:43> Subjective - Date & Time of Evaluation Date of Evaluation: 04/28/17 Time of Evaluation: 09:00 - Subjective Subjective: Patient has been seen and examined. No overnight events reported. Patient states that all of his symptoms have resolved. Patient denies any Chest pain, abdominal pain, or polydipsia. Objective - Vital Signs/Intake and Output Vital Signs (last 24 hours): Temp Pulse Resp BP Pulse Ox 98.6 F 88 18 93/69 L 99 04/28/17 12:00 04/28/17 14:00 04/28/17 12:00 04/28/17 13:30 04/28/17 06:00 Intake and Output: 04/28/17 04/28/17 06:59 18:59 Intake Total 1440 420 Output Total 700 500 Balance 740 -80 - Medications Medications: Current Medications Arformoterol Tartrate (Brovana) 15 mcg IH [id number] [facility] Aspirin (Ecotrin) 81 mg PO DAILY [facility] Atorvastatin Calcium (Lipitor) 10 mg PO HS [facility] Budesonide (Pulmicort Respules) 0.5 mg IH [id number] [facility] Carvedilol (Coreg) 3.125 mg PO BID [facility] Clopidogrel Bisulfate (Plavix) 75 mg PO DAILY [facility] Last Admin: 04/28/17 09:59 Dose: 75 mg Digoxin (Lanoxin) 0.25 mg PO 1400 [facility] Last Admin: 04/28/17 13:29 Dose: 0.25 mg Famotidine (Pepcid) 40 mg PO HS [facility] Furosemide (Lasix) 40 mg PO DAILY [facility] Last Admin: 04/28/17 13:30 Dose: Not Given Gemfibrozil (Lopid) 600 mg PO Q12 [facility] Last Admin: 04/28/17 10:00 Dose: 600 mg Heparin Sodium (Porcine) (Heparin) 5,000 units SC Q8 [facility] PRN Reason: Protocol Last Admin: 04/28/17 13:29 Dose: 5,000 units Hydrochlorothiazide (Microzide) 12.5 mg PO DAILY [facility] Last Admin: 04/28/17 10:02 Dose: Not Given Insulin Detemir (Levemir) 14 unit SC HS [facility] Insulin Human Lispro (Humalog Low) 0 units SC ACHS [facility] PRN Reason: Protocol Insulin Human Lispro (Humalog) 6 units SC [facility] Levothyroxine Sodium (Synthroid) 75 mcg PO 0600 [facility] Last Admin: 04/28/17 05:34 Dose: 75 mcg Lisinopril (Zestril) 2.5 mg PO DAILY [facility] Metoprolol Tartrate (Lopressor) 25 mg PO BID [facility] Last Admin: 04/28/17 10:00 Dose: Not Given [id number] Ethyl Esters (Lovaza) 1 gm PO BID [facility] Potassium Chloride (Potassium Chloride Oral Soln) 20 meq PO DAILY [facility] Last Admin: 04/28/17 13:17 Dose: 20 meq Sertraline HCl (Zoloft) 50 mg PO DAILY [facility] - Labs Labs: 04/28/17 08:23 04/28/17 08:23 PT 11.9 Seconds (9.9-11.8) H 04/27/17 18:50 INR 1.10 (0.93-1.08) H 04/27/17 18:50 APTT 23.1 Seconds (23.7-30.8) L 04/27/17 18:50 - Constitutional Appears: Well, Non-toxic - Head Exam Head Exam: ATRAUMATIC, NORMOCEPHALIC - Eye Exam Eye Exam: EOMI - Respiratory Exam Respiratory Exam: Clear to Ausculation Bilateral. absent: Rales, Rhonchi, Wheezes - Cardiovascular Exam Cardiovascular Exam: +S1, +S2. absent: JVD, Murmur - GI/Abdominal Exam GI & Abdominal Exam: Soft, Normal Bowel Sounds. absent: Tenderness - Extremities Exam Extremities Exam: absent: Pedal Edema - Neurological Exam Neurological Exam: Awake, Oriented x3 - Psychiatric Exam Psychiatric exam: Normal Affect, Normal Mood Assessment and Plan - Assessment and Plan (Free Text) Assessment: This is a 61 year old male with a past medical history of CAD (Left heart catheterization and [facility] to diagonal and PDA s/p STEMI), chronic systolic HF, hypothyroidism, htn, and depression who presented to the ED with complaints of chest pain, abdominal pain, polyuria and polydipsia. Patient was admitted to the floor for treatment of HONK. Plan: (1) Chest pain (resolved) -Troponin < 0.01. Will continue with medications for CAD: Lopid, lipitor, plavix. -Nitroglycerin 0.4 mg PO PRN -Cardio consulted (Recs appreciated) (2) Hyperglycemic hyperosmolar nonketotic coma (resolved) - Cont. current management of Levemir (14 units in evening) and Humalog (6 U ACHS) - ISS, Glucose Monitoring -Endo Consulted (3) Systolic CHF (30% EF), (chronic) -I/O and daily weights. Zestril, Lasix, Digoxin. (4) GI prophylaxis -pepcid 40 mg PO HS as ulcer prophylaxis. (5) DVT prophylaxis - heparin 5000 IU q 8 hours for DVT prophylaxis. Status: Acute (6) Hypothyroidism (Stable) - synthroid 75 mcg PO. (7) Hypertension (Stable) metoprolol, zestril, and HCTZ. Case seen reviewed and discussed with attending Josi Fontenot PGY-1 Pager - [phone] <Judy Bowman - Last Filed: 04/28/17 17:08> Objective - Vital Signs/Intake and Output Vital Signs (last 24 hours): Temp Pulse Resp BP Pulse Ox 98.6 F 88 18 93/69 L 99 04/28/17 12:00 04/28/17 14:00 04/28/17 12:00 04/28/17 13:30 04/28/17 06:00 Intake and Output: 04/28/17 04/28/17 06:59 18:59 Intake Total 1440 420 Output Total 700 500 Balance 740 -80 - Medications Medications: Current Medications Arformoterol Tartrate (Brovana) 15 mcg IH [id number] [facility] Aspirin (Ecotrin) 81 mg PO DAILY [facility] Atorvastatin Calcium (Lipitor) 10 mg PO HS [facility] Budesonide (Pulmicort Respules) 0.5 mg IH [id number] [facility] Carvedilol (Coreg) 3.125 mg PO BID [facility] Clopidogrel Bisulfate (Plavix) 75 mg PO DAILY [facility] Last Admin: 04/28/17 09:59 Dose: 75 mg Digoxin (Lanoxin) 0.25 mg PO 1400 [facility] Last Admin: 04/28/17 13:29 Dose: 0.25 mg Famotidine (Pepcid) 40 mg PO HS [facility] Furosemide (Lasix) 40 mg PO DAILY [facility] Last Admin: 04/28/17 13:30 Dose: Not Given Gemfibrozil (Lopid) 600 mg PO Q12 [facility] Last Admin: 04/28/17 10:00 Dose: 600 mg Heparin Sodium (Porcine) (Heparin) 5,000 units SC Q8 [facility] PRN Reason: Protocol Last Admin: 04/28/17 13:29 Dose: 5,000 units Hydrochlorothiazide (Microzide) 12.5 mg PO DAILY [facility] Last Admin: 04/28/17 10:02 Dose: Not Given Sodium Chloride (Sodium Chloride 0.9%) 1,000 mls @ 100 mls/hr IV .Q10H [facility] Insulin Detemir (Levemir) 14 unit SC HS [facility] Insulin Human Lispro (Humalog Low) 0 units SC ACHS [facility] PRN Reason: Protocol Insulin Human Lispro (Humalog) 6 units SC AC [facility] Levothyroxine Sodium (Synthroid) 75 mcg PO 0600 [facility] Last Admin: 04/28/17 05:34 Dose: 75 mcg Lisinopril (Zestril) 2.5 mg PO DAILY [facility] Metoprolol Tartrate (Lopressor) 25 mg PO BID [facility] Last Admin: 04/28/17 10:00 Dose: Not Given [id number] Ethyl Esters (Lovaza) 1 gm PO BID [facility] Potassium Chloride (Potassium Chloride Oral Soln) 20 meq PO DAILY [facility] Last Admin: 04/28/17 13:17 Dose: 20 meq Sertraline HCl (Zoloft) 50 mg PO DAILY [facility] - Labs Labs: 04/28/17 08:23 04/28/17 08:23 PT 11.9 Seconds (9.9-11.8) H 04/27/17 18:50 INR 1.10 (0.93-1.08) H 04/27/17 18:50 APTT 23.1 Seconds (23.7-30.8) L 04/27/17 18:50 Attending/Attestation - Attestation I have personally seen and examined this patient.: Yes I have fully participated in the care of the patient.: Yes I have reviewed all pertinent clinical information, including history, physical exam and plan: Yes Notes (Text): I have seen and examined the patient at bedside. Agree with the note above with the following additions/ exceptions: Briefly this is 61 year old male with history of CAD s/p PTCA, Chronic CHF due to systolic dysfunction (EF~35%), Hypothyroidism, HTN, depression who was admitted for chest pain, abdominal pain , polyuria, polidipsia and found to have uncontrolled DM. Hba1c pending. Patient was taking victoza at home and he was non compliant with that. Will start levemir and continue ISS. Will consult diabetic nurse. Troponins x2 negative. Echo and cardio consult pending. Dr Judy Bowman
[2017-04-28] MEDS: Insulin Lispro (humaLOG) LOW Coverage SC SCH ×2 (17:23→21:24)
[2017-04-28] MEDS: Sodium Chloride 0.9% 1,000 ML IV SCH (17:29)
[2017-04-28] MEDS: Omega-3-Acid Ethyl Esters 1 GM Cap PO SCH (17:31)
[2017-04-28] MEDS: Arformoterol 15 mcg/2 ml Inh Sol IH SCH (20:48)
[2017-04-28] MEDS: Budesonide 0.5 mg/2 ml Inhal Susp UD IH SCH (20:48)
[2017-04-29] MEDS: Sodium Chloride 0.9% 1,000 ML IV SCH (02:44)
[2017-04-29] MEDS: Levothyroxine 75 MCG TAB PO SCH (05:12)
[2017-04-29 06:17] VITALS: O2SAT 98
[2017-04-29 06:40] LABS: HEMOGLOBIN 12.7 gm/dL (14.0-18.0); MEAN CELL VOLUME 90.4 fL (80.0-105.0); MEAN CORPUSCULAR HEMOGLOBIN 30.6 pg (25.0-35.0); MEAN CORPUSCULAR HGB CONC 33.9 g/dl (31.0-37.0); MEAN PLATELET VOLUME 14.2 fl (7.0-11.0); RBC 4.15 10^6/uL (3.5-6.1); RED CELL DISTRIBUTION WIDTH 13.3 % (11.5-14.5); WHITE BLOOD COUNT 4.3 10^3/ul (4.5-11.0)
[2017-04-29 07:03] LABS: ALB/GLOB RATIO 0.9 (1.1-1.8); ALBUMIN 2.9 g/dL (3.0-4.8); ALT/SGPT 36 U/L (7-56); AST/SGOT 27 U/L (15-59); BLOOD UREA NITROGEN 9 mg/dL (7-21); CALCIUM 8.1 mg/dL (8.4-10.5); GFR AFRICAN-AMERICAN > 60; GFR NON-AFRICAN AMERICAN > 60
[2017-04-29] MEDS: Insulin Lispro (humaLOG) LOW Coverage SC SCH ×2 (07:51→12:17)
[2017-04-29] MEDS: Budesonide 0.5 mg/2 ml Inhal Susp UD IH SCH (07:54)
[2017-04-29] MEDS: Arformoterol 15 mcg/2 ml Inh Sol IH SCH (07:54)
[2017-04-29] MEDS: Insulin Lispro 1 UNITS/0.01 ML SC SCH ×2 (08:08→12:24)
[2017-04-29] MEDS: Potassium Chloride 20 mEq/15 ml LIQ UD PO SCH (09:37)
[2017-04-29] MEDS: Omega-3-Acid Ethyl Esters 1 GM Cap PO SCH (09:39)
[2017-04-29] MEDS ORDERED: Potassium Chloride 20 mEq ER Tab PO ONE (09:48)
--- NOTE | 2017-04-29 09:48 | CP.PCM.PN ---
Subjective - Date & Time of Evaluation Date of Evaluation: 04/29/17 Time of Evaluation: 09:00 - Subjective Subjective: Denies Chest pain, Sob , palpitation. Objective - Vital Signs/Intake and Output Vital Signs (last 24 hours): Temp Pulse Resp BP Pulse Ox 98 F 80 18 108/60 98 04/29/17 06:00 04/29/17 09:38 04/29/17 06:00 04/29/17 09:38 04/29/17 06:00 Intake and Output: 04/29/17 04/29/17 06:59 18:59 Intake Total 1680 Output Total 1450 Balance 230 - Medications Medications: Current Medications Arformoterol Tartrate (Brovana) 15 mcg IH [id number] [facility] Last Admin: 04/29/17 07:54 Dose: 15 mcg Aspirin (Ecotrin) 81 mg PO DAILY [facility] Last Admin: 04/29/17 09:39 Dose: 81 mg Atorvastatin Calcium (Lipitor) 10 mg PO HS [facility] Last Admin: 04/28/17 21:22 Dose: 10 mg Budesonide (Pulmicort Respules) 0.5 mg IH [id number] [facility] Last Admin: 04/29/17 07:54 Dose: 0.5 mg Carvedilol (Coreg) 3.125 mg PO BID [facility] Last Admin: 04/29/17 09:38 Dose: 3.125 mg Clopidogrel Bisulfate (Plavix) 75 mg PO DAILY [facility] [place] Last Admin: 04/29/17 09:38 Dose: 75 mg Digoxin (Lanoxin) 0.25 mg PO 1400 [facility] Last Admin: 04/28/17 13:29 Dose: 0.25 mg Diphenhydramine HCl (Benadryl) 25 mg PO HS PRN PRN Reason: Insomnia Famotidine (Pepcid) 40 mg PO HS [facility] Last Admin: 04/28/17 21:22 Dose: 40 mg Furosemide (Lasix) 40 mg PO DAILY [facility] [place] Last Admin: 04/29/17 09:38 Dose: 40 mg Gemfibrozil (Lopid) 600 mg PO Q12 [facility] [place] Last Admin: 04/29/17 09:38 Dose: 600 mg Heparin Sodium (Porcine) (Heparin) 5,000 units SC Q8 [facility] PRN Reason: Protocol Last Admin: 04/29/17 05:12 Dose: 5,000 units Hydrochlorothiazide (Microzide) 12.5 mg PO DAILY [facility] Last Admin: 04/29/17 09:38 Dose: 12.5 mg Sodium Chloride (Sodium Chloride 0.9%) 1,000 mls @ 100 mls/hr IV .Q10H [facility] Last Admin: 04/29/17 02:44 Dose: 100 mls/hr Insulin Detemir (Levemir) 24 unit SC HS [facility] Insulin Human Lispro (Humalog Low) 0 units SC ACHS [facility] PRN Reason: Protocol Last Admin: 04/29/17 07:51 Dose: Not Given Insulin Human Lispro (Humalog) 12 units SC AC [facility] Last Admin: 04/29/17 08:08 Dose: 12 units Levothyroxine Sodium (Synthroid) 75 mcg PO 0600 [facility] Last Admin: 04/29/17 05:12 Dose: 75 mcg Lisinopril (Zestril) 2.5 mg PO DAILY [facility] Last Admin: 04/29/17 09:37 Dose: 2.5 mg Metoprolol Tartrate (Lopressor) 25 mg PO BID [facility] Last Admin: 04/29/17 09:38 Dose: 25 mg [id number] Ethyl Esters (Lovaza) 1 gm PO BID [facility] [place] Last Admin: 04/29/17 09:39 Dose: 1 gm Potassium Chloride (Potassium Chloride Oral Soln) 20 meq PO DAILY [facility] [place] Last Admin: 04/29/17 09:37 Dose: 20 meq Sertraline HCl (Zoloft) 50 mg PO DAILY [facility] Last Admin: 04/29/17 09:38 Dose: 50 mg - Labs Labs: 04/29/17 05:30 04/29/17 05:30 PT 11.9 Seconds (9.9-11.8) H 04/27/17 18:50 INR 1.10 (0.93-1.08) H 04/27/17 18:50 APTT 23.1 Seconds (23.7-30.8) L 04/27/17 18:50 Assessment and Plan - Assessment and Plan (Free Text) Assessment: Uncontrolled DM Obessity CAD. S/p STEMI 05/2015 S/p PTCA with Deborah D2 and RPDA No evidence of ACS/nor N STEMI HTN CMP ...ef-35% by recent [facility]GA Plan: Agressive medical treatment Dc telemetry Stress test as out pt will f/u upp in office Once DM is controlled can be dc home
[2017-04-29] MEDS ORDERED: Fluticasone-Salmeterol 250-50mcg Diskus INH SCH (10:00)
[2017-04-29 11:59] VITALS: BP 102/64; PULSE 68; RESP 20; TEMP 98.6
--- NOTE | 2017-04-29 12:47 | CP.PCM.DIS ---
<Sheryl Mccall - Last Filed: 04/29/17 13:46> Provider - Provider Date of Admission: 04/27/17 21:37 Attending physician: Judy Bowman MD Primary care physician: Anjum Hightower MD Consults: Cardio: Dr. Faria Time Spent in preparation of Discharge (in minutes): 35 Hospital Course - Lab Results Lab Results: Most Recent Lab Values WBC 4.3 10^3/ul (4.5-11.0) L 04/29/17 05:30 RBC 4.15 10^6/uL (3.5-6.1) 04/29/17 05:30 Hgb 12.7 gm/dL (14.0-18.0) L 04/29/17 05:30 Hct 37.5 % (42.0-52.0) L 04/29/17 05:30 MCV 90.4 fL (80.0-105.0) 04/29/17 05:30 MCH 30.6 pg (25.0-35.0) 04/29/17 05:30 MCHC 33.9 g/dl (31.0-37.0) 04/29/17 05:30 RDW 13.3 % (11.5-14.5) 04/29/17 05:30 Plt Count 128 10^3/uL (120.0-450.0) 04/29/17 05:30 MPV 14.2 fl (7.0-11.0) H 04/29/17 05:30 Gran % 65.0 % (50.0-68.0) 04/27/17 18:50 Lymph % (Auto) 25.0 % (22.0-35.0) 04/27/17 18:50 [place] % (Auto) 8.9 % (1.0-6.0) H 04/27/17 18:50 Eos % (Auto) 0.6 % (1.5-5.0) L 04/27/17 18:50 Baso % (Auto) 0.5 % (0.0-3.0) 04/27/17 18:50 Gran # 4.30 (1.4-6.5) 04/27/17 18:50 Lymph # 1.7 (1.2-3.4) 04/27/17 18:50 [place] # 0.6 (0.1-0.6) 04/27/17 18:50 Eos # 0.0 (0.0-0.7) 04/27/17 18:50 Baso # 0.03 K/mm3 (0.0-2.0) 04/27/17 18:50 PT 11.9 Seconds (9.9-11.8) H 04/27/17 18:50 INR 1.10 (0.93-1.08) H 04/27/17 18:50 APTT 23.1 Seconds (23.7-30.8) L 04/27/17 18:50 Sodium 133 mmol/L (132-148) 04/29/17 05:30 Potassium 3.8 mmol/L (3.6-5.0) 04/29/17 05:30 Chloride 102 mmol/L (98-107) 04/29/17 05:30 Carbon Dioxide 25 mmol/L (21-33) 04/29/17 05:30 Anion Gap 10 (10-20) 04/29/17 05:30 BUN 9 mg/dL (7-21) 04/29/17 05:30 Creatinine 0.6 mg/dL (0.5-1.4) 04/29/17 05:30 Est GFR ( Amer) > 60 04/29/17 05:30 Est GFR (Non-Af Amer) > 60 04/29/17 05:30 POC Glucose (mg/dL) 287 mg/dL (65-110) H 04/29/17 12:02 Random Glucose 256 mg/dL (70-110) H 04/29/17 05:30 Hemoglobin A1c 20.3 % (4.2-6.5) H D 04/28/17 10:21 Calcium 8.1 mg/dL (8.4-10.5) L 04/29/17 05:30 Phosphorus 2.2 mg/dL (2.5-4.5) L 04/28/17 08:23 Magnesium 1.8 mg/dL (1.7-2.2) 04/28/17 08:23 Total Bilirubin 0.6 mg/dL (0.2-1.3) 04/29/17 05:30 AST 27 U/L (15-59) 04/29/17 05:30 ALT 36 U/L (7-56) 04/29/17 05:30 Alkaline Phosphatase 115 U/L (38-133) 04/29/17 05:30 Lactate Dehydrogenase 361 U/L (333-699) 04/28/17 08:23 Total Creatine Kinase 58 U/L (35-230) 04/28/17 08:23 Troponin I 0.01 ng/mL 04/28/17 08:23 NT-Pro-B Natriuret Pep 1070 pg/mL (0-450) H 04/28/17 08:23 Total Protein 5.9 g/dL (5.8-8.3) 04/29/17 05:30 Albumin 2.9 g/dL (3.0-4.8) L 04/29/17 05:30 Globulin 3.1 gm/dL 04/29/17 05:30 Albumin/Globulin Ratio 0.9 (1.1-1.8) L 04/29/17 05:30 Triglycerides 765 mg/dL (35-160) H 04/28/17 10:12 Cholesterol 154 mg/dL (130-200) 04/28/17 10:12 LDL Cholesterol Direct 36 mg/dL (0-129) 04/28/17 10:12 HDL Cholesterol 24 mg/dL (29-60) L 04/28/17 10:12 Thyroxine (T4) 7.6 ug/dL (5.5-11.0) 04/27/17 18:50 TSH 3rd Generation 3.76 mIU/mL (0.46-4.68) 04/27/17 18:50 Urine Color Yellow (YELLOW) 04/27/17 23:35 Urine Appearance Sl cloudy (CLEAR) 04/27/17 23:35 Urine pH 6.0 (4.7-8.0) 04/27/17 23:35 Ur Specific [place] 1.010 (1.005-1.035) 04/27/17 23:35 Urine Protein Negative mg/dL (<30 mg/dL) 04/27/17 23:35 Urine Glucose (UA) 500 mg/dL (NEGATIVE) H 04/27/17 23:35 Urine Ketones 40 mg/dL (NEGATIVE) H 04/27/17 23:35 Urine Blood Small (NEGATIVE) H 04/27/17 23:35 Urine Nitrate Negative (NEGATIVE) 04/27/17 23:35 Urine Bilirubin Negative (NEGATIVE) 04/27/17 23:35 Urine Urobilinogen 0.2 E.U./dL (<1 E.U./dL) 04/27/17 23:35 Ur Leukocyte Esterase Negative Melanie/uL (NEGATIVE) 04/27/17 23:35 Urine RBC 2 - 5 /hpf (0-2) 04/27/17 23:35 Urine WBC 0 - 2 /hpf (0-6) 04/27/17 23:35 Ur Epithelial Cells 0 - 2 /hpf (0-5) 04/27/17 23:35 Digoxin 0.6 ng/mL (0.8-2.0) L 04/27/17 20:21 - Hospital Course Hospital Course: This is a 61Y M with PMH CAD s/p PCI, CHF (EF 35%), hypothyroidism, HTN, depression, DM admitted for chest pain, abdominal pain with polyuria. Cardiology was consulted for chest pain. Troponin negative x 3. Cardiology recommended medical management. Triglycerides over 300 and Lovaza started. He was also found to have glucose of greater that 600 which was managed with SC insulin. HgbA1c was 20.3. Endocrinology consulted and recommended patient be on Metformin 1000mg BID and Victoza 1.8mg qd. He will need a repeat A1c in 3 months. If still >9%, patient will need basal insulin such as NPH. scout sniper spoke with patient and he was given glucometer. Patient reports feeling well today and would like to go home. He will follow up with Dr. Hightower in 1 week and will be referred to outpatient free lance model. Patient agrees with the plan. Medication changes include: - Stop Metoprolol - Start Coreg 3.125mg BID - Lovaza BID - Metformin 1000mg BID - Victoza 1.8mg SC daily - Date & Time of H&P Date of H&P: 04/27/17 Time of H&P: 23:00 Discharge Exam - Head Exam Head Exam: ATRAUMATIC, NORMOCEPHALIC - Eye Exam Eye Exam: Normal appearance, PERRL Pupil Exam: NORMAL ACCOMODATION, PERRL - ENT Exam ENT Exam: Mucous Membranes Moist - Respiratory Exam Respiratory Exam: Clear to PA & Lateral, NORMAL BREATHING PATTERN, UNREMARKABLE. absent: Rales, Rhonchi, Wheezes - Cardiovascular Exam Cardiovascular Exam: REGULAR RHYTHM, +S1, +S2. absent: Gallop, Rubs, Systolic Murmur - GI/Abdominal Exam GI & Abdominal Exam: Normal Bowel Sounds, Soft, Unremarkable. absent: Guarding , Mass, Rebound, Rigid, Tenderness - Extremities Exam Extremities exam: normal inspection - Neurological Exam Neurological exam: Alert, CN II-XII Intact, Oriented x3 - Psychiatric Exam Psychiatric exam: Normal Affect, Normal Mood - Skin Skin Exam: Dry, Intact, Normal Color, Warm Discharge Plan - Discharge Medications Prescriptions: Carvedilol [Coreg] 3.125 mg PO BID #60 tab Liraglutide [Victoza 3-Juan] 1.8 mg SQ DAILY #1 pen.injctr MetFORMIN [glucoPHAGE] 1,000 mg PO BID #60 tab Whtly-1-Coib Ethyl Esters 1 GM [Lovaza] 1 gm PO BID #60 sgl - Follow Up Plan Condition: FAIR Disposition: HOME/ ROUTINE Instructions: Chest Pain (DC), How to Check Your Blood Sugar (DC), Meal Planning with Diabetes Exchanges (DC) Additional Instructions: 1. Stop taking Metoprolol. 2. Check sugar in morning and before meals. Keep diary log of sugar. 3. Take Metformin 1000mg twice per day and Victoza 1.8mg injection daily. 4. Follow up with PMD, Dr. Hightower in 1 week. 5. If HgbA1c >9% in 3 months, patient will need to be on basal insulin NPH as per endocrinology. 6. New medications include: - Carvedilol 3.125 mg twice per day ( For blood pressure) - Lovaza 1 gram sublingual twice per day (for high triglycerides) 7. Please follow up with Industrial Economist, Dr. Hood for diabetes management follow up. Referrals: Anjum Hightower MD [Primary Care Provider] - Bayron Holden MD [Staff Provider] - <Judy Bowman - Last Filed: 04/29/17 17:09> Provider - Provider Date of Admission: 04/27/17 21:37 Attending physician: Judy Bowman MD Primary care physician: Anjum Hightower MD Hospital Course - Lab Results Lab Results: Most Recent Lab Values WBC 4.3 10^3/ul (4.5-11.0) L 04/29/17 05:30 RBC 4.15 10^6/uL (3.5-6.1) 04/29/17 05:30 Hgb 12.7 gm/dL (14.0-18.0) L 04/29/17 05:30 Hct 37.5 % (42.0-52.0) L 04/29/17 05:30 MCV 90.4 fL (80.0-105.0) 04/29/17 05:30 MCH 30.6 pg (25.0-35.0) 04/29/17 05:30 MCHC 33.9 g/dl (31.0-37.0) 04/29/17 05:30 RDW 13.3 % (11.5-14.5) 04/29/17 05:30 Plt Count 128 10^3/uL (120.0-450.0) 04/29/17 05:30 MPV 14.2 fl (7.0-11.0) H 04/29/17 05:30 Gran % 65.0 % (50.0-68.0) 04/27/17 18:50 Lymph % (Auto) 25.0 % (22.0-35.0) 04/27/17 18:50 [place] % (Auto) 8.9 % (1.0-6.0) H 04/27/17 18:50 Eos % (Auto) 0.6 % (1.5-5.0) L 04/27/17 18:50 Baso % (Auto) 0.5 % (0.0-3.0) 04/27/17 18:50 Gran # 4.30 (1.4-6.5) 04/27/17 18:50 Lymph # 1.7 (1.2-3.4) 04/27/17 18:50 [place] # 0.6 (0.1-0.6) 04/27/17 18:50 Eos # 0.0 (0.0-0.7) 04/27/17 18:50 Baso # 0.03 K/mm3 (0.0-2.0) 04/27/17 18:50 PT 11.9 Seconds (9.9-11.8) H 04/27/17 18:50 INR 1.10 (0.93-1.08) H 04/27/17 18:50 APTT 23.1 Seconds (23.7-30.8) L 04/27/17 18:50 Sodium 133 mmol/L (132-148) 04/29/17 05:30 Potassium 3.8 mmol/L (3.6-5.0) 04/29/17 05:30 Chloride 102 mmol/L (98-107) 04/29/17 05:30 Carbon Dioxide 25 mmol/L (21-33) 04/29/17 05:30 Anion Gap 10 (10-20) 04/29/17 05:30 BUN 9 mg/dL (7-21) 04/29/17 05:30 Creatinine 0.6 mg/dL (0.5-1.4) 04/29/17 05:30 Est GFR ( Amer) > 60 04/29/17 05:30 Est GFR (Non-Af Amer) > 60 04/29/17 05:30 POC Glucose (mg/dL) 287 mg/dL (65-110) H 04/29/17 12:02 Random Glucose 256 mg/dL (70-110) H 04/29/17 05:30 Hemoglobin A1c 20.3 % (4.2-6.5) H D 04/28/17 10:21 Calcium 8.1 mg/dL (8.4-10.5) L 04/29/17 05:30 Phosphorus 2.2 mg/dL (2.5-4.5) L 04/28/17 08:23 Magnesium 1.8 mg/dL (1.7-2.2) 04/28/17 08:23 Total Bilirubin 0.6 mg/dL (0.2-1.3) 04/29/17 05:30 AST 27 U/L (15-59) 04/29/17 05:30 ALT 36 U/L (7-56) 04/29/17 05:30 Alkaline Phosphatase 115 U/L (38-133) 04/29/17 05:30 Lactate Dehydrogenase 361 U/L (333-699) 04/28/17 08:23 Total Creatine Kinase 58 U/L (35-230) 04/28/17 08:23 Troponin I 0.01 ng/mL 04/28/17 08:23 NT-Pro-B Natriuret Pep 1070 pg/mL (0-450) H 04/28/17 08:23 Total Protein 5.9 g/dL (5.8-8.3) 04/29/17 05:30 Albumin 2.9 g/dL (3.0-4.8) L 04/29/17 05:30 Globulin 3.1 gm/dL 04/29/17 05:30 Albumin/Globulin Ratio 0.9 (1.1-1.8) L 04/29/17 05:30 Triglycerides 765 mg/dL (35-160) H 04/28/17 10:12 Cholesterol 154 mg/dL (130-200) 04/28/17 10:12 LDL Cholesterol Direct 36 mg/dL (0-129) 04/28/17 10:12 HDL Cholesterol 24 mg/dL (29-60) L 04/28/17 10:12 Thyroxine (T4) 7.6 ug/dL (5.5-11.0) 04/27/17 18:50 TSH 3rd Generation 3.76 mIU/mL (0.46-4.68) 04/27/17 18:50 Urine Color Yellow (YELLOW) 04/27/17 23:35 Urine Appearance Sl cloudy (CLEAR) 04/27/17 23:35 Urine pH 6.0 (4.7-8.0) 04/27/17 23:35 Ur Specific [place] 1.010 (1.005-1.035) 04/27/17 23:35 Urine Protein Negative mg/dL (<30 mg/dL) 04/27/17 23:35 Urine Glucose (UA) 500 mg/dL (NEGATIVE) H 04/27/17 23:35 Urine Ketones 40 mg/dL (NEGATIVE) H 04/27/17 23:35 Urine Blood Small (NEGATIVE) H 04/27/17 23:35 Urine Nitrate Negative (NEGATIVE) 04/27/17 23:35 Urine Bilirubin Negative (NEGATIVE) 04/27/17 23:35 Urine Urobilinogen 0.2 E.U./dL (<1 E.U./dL) 04/27/17 23:35 Ur Leukocyte Esterase Negative Melanie/uL (NEGATIVE) 04/27/17 23:35 Urine RBC 2 - 5 /hpf (0-2) 04/27/17 23:35 Urine WBC 0 - 2 /hpf (0-6) 04/27/17 23:35 Ur Epithelial Cells 0 - 2 /hpf (0-5) 04/27/17 23:35 Digoxin 0.6 ng/mL (0.8-2.0) L 04/27/17 20:21 Attending/Attestation - Attestation I have personally seen and examined this patient.: Yes I have fully participated in the care of the patient.: Yes I have reviewed all pertinent clinical information, including history, physical exam and plan: Yes Notes (Text): I have seen and examined the patient at bedside. Agree with the note above with the following additions/ exceptions: Briefly this is 61 year old male with history of CAD s/p PTCA, Chronic CHF due to systolic dysfunction (EF~35%), Hypothyroidism, HTN, depression who was admitted for chest pain, abdominal pain , polyuria, polidipsia and found to have uncontrolled DM. Hba1c is 20. Patient was taking victoza at home however he stopped that couple of weeks ago. Endocrine consult was obtained and they recommended to increase metformin and restart victoza. Advise to hold off on insulin for now. Diabetic nurse educator consult appreciated. Troponins negative. Cardio consult appreciated. Follow up with Dr Hightower within 3-[address] Judy Bowman
[2017-04-29] MEDS ORDERED: Insulin Detemir 100 units/ml Vial (Levemir) SC SCH (22:00)
== END 2017-04-29 13:40 | disposition home or self-care (01) ==
LOC: ED 18:40 → ERH 21:37 → INTOOBSV 21:37 → UNDOADMOB 21:37 → ERH 21:49 → 2RNO 23:47 → ERH 23:47 → 2RNO 23:47 → UNDODISOB 04-29 13:40
PROVIDERS: ADMIT Internal Medicine; ATTEND Hospitalist
DX: R07.9 Chest pain, unspecified (principal); J44.9 Chronic obstructive pulmonary disease, unspecified; Z87.891 Personal history of nicotine dependence; R35.8 Other polyuria; R63.1 Polydipsia; I25.10 Atherosclerotic heart disease of native coronary artery without angina pectoris; E03.9 Hypothyroidism, unspecified; E11.9 Type 2 diabetes mellitus without complications; F32.9 Major depressive disorder, single episode, unspecified; I25.2 Old myocardial infarction
CPT/HCPCS: 36415; 71010; 80048; 80053; 80061; 80162; 81001; 82550; 82948; 83036; 83615; 83735; 83880; 84100; 84436; 84443; 84484; 85025; 85027; 85610; 85730; 93005; 94640; 94760; 96360; 99285; G0378; J1644; J3480; J7040

== ENCOUNTER 2018-01-18 06:14 | Day surgery (SDC) | payer MEDICARE, MEDICAID ==
[2018-01-12 13:27] VITALS: BMI 41.5
--- NOTE | 2018-01-16 02:15 | HP ---
REASON FOR ADMISSION: Left heart cath, possible angioplasty. BRIEF CLINICAL HISTORY: This is a 62-year-old male with past medical history significant for coronary artery disease, status post PTCA, for STEMI of LAD and diagonal 1, 01/22/2013, status post open heart surgery for mitral valve repair on 05/07/2015, CMP, complaining of recent chest pain, shortness of breath and palpitation, so patient underwent a stress test that was abnormal. The patient is scheduled for elective cardiac cath, possible angioplasty. PAST MEDICAL HISTORY: Significant for hypertension, hyperlipidemia, diabetes, cardiomyopathy, coronary artery disease, status post OH, status post primary PTCA. PREVIOUS CARDIAC WORKUP: Patient had cardiac catheterization, 06/24/2014, when the patient presented with a code STEMI. At that time, PTCA, left heart catheterization and stenting of diagonal 1 and RPDA. At that time, diagonal was 99% and RPDA was 90% stenosis. Patient underwent PTCA with drug-eluting stent, 06/25/2014, when the patient presented with acute OH. Later on, patient had cath done, found to be in severe mitral regurgitation and patient referred for open heart surgery, 12/08/2014. RECENT CARDIAC WORKUP: Patient had a stress test that showed ejection fraction 22% dated 12/15/2017, partially reversible small defect, anterior defect suspicious of ischemia. Patient had echocardiography done dated 12/17/2017 that showed ejection fraction 40%, bioprosthetic mitral valve noted, trace mitral regurgitation, trace tricuspid regurgitation. CURRENT MEDICATIONS: Patient at home was taking Protonix, glimepiride, , clopidogrel, Coreg 25 p.o. b.i.d., Lipitor 80 mg, aspirin, Lopid 600 mg daily, Lasix 40 mg daily, metformin, lisinopril, Victoza, Synthroid and Atrovent. REVIEW OF SYSTEMS: As per HPI. PHYSICAL EXAMINATION: VITAL SIGNS: Height of the patient 5 feet 5 inches, weight of the patient 250 pounds, body mass index 41.6 kg/m2, blood pressure 110/60, heart rate 65. HEENT: PERRLA, extraocular muscles intact. NECK: Supple. No carotid bruit, no thyromegaly. CHEST: Clear to auscultation. HEART: S1, S2 regular. ABDOMEN: Soft. EXTREMITIES: Clubbing and cyanosis negative. LABORATORY DATA: Blood workup pending. IMPRESSION: History of coronary artery disease, status post ST-elevation myocardial infarction when the patient presented with ST-elevation myocardial infarction at that time. On 06/25/2014, patient underwent percutaneous transluminal coronary angioplasty of diagonal 2 and stenting of right posterior descending artery. Later on, patient underwent an open heart surgery for left ventricular aneurysm repair and bioprosthetic mitral valve replacement was done. Recently, a stress test was abnormal showing decreased left ventricular ejection as well anterolateral wall ischemia, patient scheduled for elective cardiac cath, possible angioplasty. By stress test, ejection fraction 22%; by echo, ejection fraction of 40%; trace mitral regurgitation; trace tricuspid regurgitation. PLAN: Risks, benefits and alternatives discussed with the patient. Patient agreed to proceed with a cardiac catheterization. Further recommendation depending on the cardiac cath. We will follow with you. Thank you Dr. Hightower for providing us the opportunity in taking care of your patient, Adrian Oden. Raoul Faria MD
[2018-01-18] MEDS ORDERED: Lidocaine 2% Inj (20ml) ONE (06:46)
[2018-01-18] MEDS ORDERED: Iodixanol 320 MG/ML 100 ML BOTTLE IV ONE (06:47)
[2018-01-18] MEDS ORDERED: Nitroglycerin 50mg in D5W 50 MG/250 ML BOTTLE IV ONE (06:47)
[2018-01-18] MEDS ORDERED: HEPARIN SODIUM/NS 2,000 ML IV ONE (06:47)
[2018-01-18] MEDS ORDERED: Iodixanol 320 MG/ML 200 ML BOTTLE IV ONE (06:47)
[2018-01-18] MEDS ORDERED: Verapamil 2 ML ONE (06:47)
[2018-01-18] MEDS ORDERED: Iohexol 350mgl/ml 50 ML ONE (06:47)
[2018-01-18 06:54] VITALS: RESP 18
[2018-01-18 07:00] LABS: BASO # 0.06 K/mm3 (0.0-2.0); BASO % 0.8 % (0.0-3.0); EOS # 0.2 (0.0-0.7); EOS % 3.2 % (1.5-5.0); GRAN # 4.74 (1.4-6.5); GRAN % 65.6 % (50.0-68.0); HEMOGLOBIN 13.1 g/dL (14.0-18.0); LYMPH # 1.7 (1.2-3.4); LYMPH % 22.8 % (22.0-35.0); MEAN CELL VOLUME 92.4 fl (80.0-105.0); MEAN CORPUSCULAR HEMOGLOBIN 29.1 pg (25.0-35.0); MEAN CORPUSCULAR HGB CONC 31.5 g/dl (31.0-37.0); MEAN PLATELET VOLUME 10.7 fl (7.0-11.0); MONO # 0.6 (0.1-0.6); MONO % 7.6 % (1.0-6.0); RBC 4.5 10^6/uL (3.5-6.1); RED CELL DISTRIBUTION WIDTH 13.5 % (11.5-14.5); WHITE BLOOD COUNT 7.2 10^3/ul (4.5-11.0)
[2018-01-18 07:04] LABS: BLOOD UREA NITROGEN 13 mg/dL (7-21); CALCIUM 9.5 mg/dL (8.4-10.5); GFR AFRICAN-AMERICAN > 60; GFR NON-AFRICAN AMERICAN > 60; HDL CHOLESTEROL 27 mg/dL (29-60)
[2018-01-18 07:15] LABS: LDL CHOLESTEROL 52 mg/dL (0-129)
[2018-01-18 07:17] LABS: INR 1.03 (0.93-1.08); PARTIAL THROMBOPLASTIN TIME 31.5 Seconds (25.1-36.5); PROTHROMBIN TIME 11.9 SECONDS (9.4-12.5)
[2018-01-18] MEDS ORDERED: Midazolam 2 MG/2 ML VIAL ONE (07:36)
[2018-01-18] MEDS ORDERED: Bacitracin 500 Units/gm Oint Foilpak UD TOP ONE (08:33)
[2018-01-18 08:41] VITALS: TEMP 97.9
[2018-01-18] MEDS ORDERED: Sodium Chloride 0.9% 1,000 ML IV SCH (08:45)
--- NOTE | 2018-01-18 09:23 | CPOSTOP ---
DATE: 07/21/2018 CARDIOVASCULAR WILDLIFE REFUGE SPECIALIST POSTPROCEDURE NOTE PHYSICIAN: Raoul Faria MD. BALLER TENDER: Sang Arnold, natural resource technician. TYPE OF ANESTHESIA: Moderate conscious sedation. Total dose of 1 mg of Versed, 50 of fentanyl given. PRE-PROCEDURE DIAGNOSES: Coronary artery disease, unstable angina, abnormal stress test, status post code ST-elevation myocardial infarction in 2013, status post open heart surgery for mitral valve repair. FINDINGS: Patent PTCA site, status post MVR, decreased LV function. FINAL DIAGNOSES: Patent stent; cardiomyopathy, ischemic, status post mitral valve replacement. POST PROCEDURE CONDITION: The patient is stable. VASCULAR ACCESS SITE: Left radial artery. CLOSING DEVICE: TR Band. TOTAL DOSE OF RADIATION: 7896.99 milligray unit. TOTAL FLUORO TIME: 2.5 minutes. Raoul Faria MD
[2018-01-18] MEDS ORDERED: Bacitracin 500 Units/gm Oint Foilpak UD ONE (10:44)
[2018-01-18 10:54] VITALS: BP 125/66; PULSE 66; O2SAT 96
[2018-01-18] MEDS ORDERED: Insulin Reg-LOW-Coverage SC SCH (11:30)
[2018-01-18] MEDS ORDERED: Insulin Regular 100 units/ml ONE (11:32)
--- NOTE | 2018-01-18 15:50 | CARD ---
APPROVED REPORT Procedure(s) performed: Left Heart Catheterization HISTORY The patient is a 62 year-old male with a history of : previous AL (> 7 days), most recent EF: 22%. (EF Method: RADIONUCLIDE), previous CHF, diabetes mellitus with oral treatment , chronic lung disease, previous diagnostic cath, tobacco history() : The patient is a former smoker , previous PCI (The PCI date was 01/22/2013), hypertension , dyslipidemia , previous valve surgery (The previous valve surgery date was ), Hxof OHS for MVR bioprosthetic and LV aneuresectomy on 12/08/2014, who was C/o inreasing SOB and WHITE, and abnormal stress test partial reversible small defect.,EF-22%, by echo EF-40% dated 12/17/2017, Hx of Code STEMI on 01/22/2013 and had PTCA of D! and RPDA were done with [facility].. INDICATION The indication(s) include : positive stress test. CASE TECHNIQUE The patient was brought electively to the Cardiac Catheterization Laboratory in a fasting state and was prepped and draped in a sterile manner. The left wrist was infiltrated with 2% Lidocaine subcutaneous anesthesia. A 6FR GLIDESHEATH ACCESS KIT sheath was inserted into the left radial artery without difficulty. Coronary angiography was performed using coronary diagnostic catheters. The left coronary system was accessed and visualized with a Diagnostic ,5 Fr JL 4 catheter. The right coronary system was accessed and visualized with a Diagnostic ,5 Fr JR 4 catheter. The left ventricle was accessed and visualized with a 5 Fr Pigtail 145 (Angled) catheter. Left ventricular/Aortic Valve gradient assessed on pullback. Left ventriculogram was performed in CORDOVA projection. Closure device was deployed with a Fr TR Band (Large) without any complications. The patient tolerated the procedure well and there were no complications associated with the procedure. Vessel Analysis The patient's coronary anatomy is right dominant. The left main coronary artery is a large size vessel with diffuse calcification noted throughout this vessel and without significant stenosis. The left main bifurcates to the left anterior descending and circumflex. The left anterior descending artery is a small size vessel with diffuse calcification noted throughout this vessel and without significant stenosis. The first diagonal branch is a medium size vessel with diffuse calcification noted throughout this vessel and without significant stenosis. patent stent proximally The circumflex artery is a medium size vessel with diffuse calcification noted throughout this vessel and without significant stenosis. The first obtuse marginal branch is a medium size vessel with diffuse calcification noted throughout this vessel and without significant stenosis. There is a 60% stenosis in the proximal segment. long tubular stenosis The right coronary artery is a large size vessel with diffuse calcification noted throughout this vessel and without significant stenosis. super dominant wrap around apex. There is a 30% stenosis in the proximal segment. The right posterior descending artery is a large size vessel with diffuse calcification noted throughout this vessel and without significant stenosis. patent stent prox to mid The right posterolateral branch is a medium size vessel with diffuse calcification noted throughout this vessel and without significant stenosis. Left Ventricle The left ventricle is enlarged in size with modertately decreased contractility. Ischemic cardiomyopathy. The left ventricular ejection fraction is estimated to be 35-40%. The left ventricular end diastolic pressure is 18 mmHg. There was no gradient across the aortic valve upon pullback. 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 S/p MVR and LV aneuresectomy Ischemic OHR-IG-60-40%, EDP-18 mmof hg. Recommendations Smoking Cessation Cardiac Rehabilitation Referral Aggressive Medical TherapyCardiac Risk Reduction Program Weight Loss Reduction Program continue Dig, GONZALO, Coreg, Dig and diuretics reassess LV Fx in 3-6 months and if remains less than 35%, consider AICD. CC; Drs. Hamilton/ Eric
--- NOTE | 2018-01-18 23:56 | CARD ---
APPROVED REPORT EKG Measurement Heart [id number] <Conclusion> Normal sinus rhythm Left anterior fascicular block Inferior infarct, age undetermined Cannot rule out Anterior infarct, age undetermined ST & T wave abnormality, consider lateral ischemia Abnormal ECG
== END 2018-01-18 12:10 | disposition home or self-care (01) ==
LOC: CATH 06:14
PROVIDERS: ATTEND Internal Medicine Cardiovascular Disease
DX: I25.10 Atherosclerotic heart disease of native coronary artery without angina pectoris (principal); I25.5 Ischemic cardiomyopathy; I50.9 Heart failure, unspecified; I11.0 Hypertensive heart disease with heart failure; E78.5 Hyperlipidemia, unspecified; E11.9 Type 2 diabetes mellitus without complications; I25.2 Old myocardial infarction; Z95.5 Presence of coronary angioplasty implant and graft; Z95.2 Presence of prosthetic heart valve; Z87.891 Personal history of nicotine dependence
CPT/HCPCS: 36415; 80048; 80061; 82948; 85025; 85610; 85730; 86850; 86900; 93005; 93458; 99152; 99153; C1769; C1887 ×2; J1644 ×2; J2250; J3010; J7030; J7040; Q9966

== ENCOUNTER 2018-11-05 09:15 | Outpatient (CLI) | payer MEDICARE, MEDICAID | END 2018-11-05 09:16 | disposition home or self-care (01) | LOC: RAD 09:15 ==